=== PATIENT | male | born 1980 | race Caucasian/White ===

== ENCOUNTER 2016-11-23 09:17 | Emergency (ER) | payer OTHER ==
[~2016-11-23] VITALS: Ht 157.5 cm; Wt 76.1 kg
[~2016-11-23 09:17] MED LIST: ACET-1311 PO; BACL10TA PO; BISA10SU5 PR; DOCU1TAB6 PO; ENOX40IN SQ; ONDA4TAB46 PO; OXYC1TAB3 PO; SENN-65 PO; TRAM-10 PO; VANCOMYCIN IV
[2016-11-23 09:25] VITALS: TEMP 36.8; Ht 157.5 cm; Wt 76.1 kg
[2016-11-23] MEDS ORDERED: SODIUM CHLORIDE 0.9% 1000ML 1,000 ML IV STA ×2 (09:39→12:20)
[2016-11-23 10:33] LABS: BASO % 0.2 %; BASO ABS # 0.01 K/uL (0-0.2); COMPLETE YES; EOS % 0.6 %; HEMATOCRIT 46.1 % (42-52); IG% 0.2 %; LYMPH % 28.5 %; LYMPH ABS # 1.83 K/uL (1.2-3.4); MEAN CELL VOLUME 89.9 fL (80-100); MEAN CORPUSCULAR HEMOGLOBIN 30.4 pg (25-34); MEAN CORPUSCULAR HGB CONC 33.8 g/dl (32-36); MEAN PLATELET VOLUME 9.2 fL (7.4-10.4); MONO % 7.3 %; NEUT % 63.2 %; PLATELET COUNT 215 K/uL (130-400); RED BLOOD COUNT 5.13 M/uL (4.7-6.1); WHITE BLOOD COUNT 6.42 K/uL (4.8-10.8)
--- NOTE | 2016-11-23 10:33 | DIAGNOSTIC IMAGING REPORT ---
ABDOMEN AND PELVIS CT WITHOUT CONTRAST CT DOSE: 938.37 mGycm HISTORY: Pain LLQ pain eval for stone TECHNIQUE: Multiaxial CT images of the abdomen and pelvis were performed without the use of intravenous and oral contrast according to the standard department stone protocol. COMPARISON STUDY: None. FINDINGS: The lung bases are clear. The unenhanced liver, gallbladder, spleen, pancreas, and adrenal glands are unremarkable. No renal stones or hydronephrosis. No bowel wall thickening or obstruction. The pelvic organs are unremarkable. No suspicious lytic or blastic osseous lesions. Bowel pattern is nonobstructive. Prior cholecystectomy. Several para-aortic pelvic and inguinal nodes measuring up to 10 mm. These appear to be reactive. Bladder is midline. No evidence for bladder calcification. IMPRESSION: Negative study Electronically signed by: Gordy Kang M.D. 11/23/2016 10:32 AM Dictated Date/Time: 11/23/2016 10:20 AM
[2016-11-23 10:52] LABS: BUN/CREATININE RATIO 10.6 (10-20); CALCIUM 9.2 mg/dl (8.5-10.1); CREATININE 1.2 mg/dl (0.60-1.40); POTASSIUM 3.5 mmol/L (3.5-5.1)
[2016-11-23 11:52] LABS: MANUAL MICROSCOPIC REQUIRED? NO; URINE APPEARANCE CLEAR (CLEAR); URINE BILIRUBIN NEG (NEG); URINE COLOR YELLOW; URINE NITRITE NEG (NEG); URINE SPECIFIC GRAVITY 1.015 (1.000-1.030); UROBILINOGEN NEG (NEG)
[2016-11-23 11:54] LABS: REVIEW REQ? NO
[2016-11-23] MEDS ORDERED: AMOX875T PO (12:21)
[2016-11-23 13:07] VITALS: BP 119/80; PULSE 85; O2SAT 97
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
== END 2016-11-23 13:10 | disposition home or self-care (01) ==
LOC: C.EDB 09:19 → C.EDA 13:10
DX: R34 Anuria and oliguria (principal); R10.32 Left lower quadrant pain; S61.451A Open bite of right hand, initial encounter; Z79.899 Other long term (current) drug therapy; Z87.828 Personal history of other (healed) physical injury and trauma; Z87.891 Personal history of nicotine dependence; Z87.898 Personal history of other specified conditions; W50.3XXA Accidental bite by another person, initial encounter

== ENCOUNTER 2016-12-08 08:16 | Emergency (ER) | payer OTHER ==
[~2016-12-08] VITALS: Ht 157.5 cm; Wt 77.8 kg
[~2016-12-08 08:16] MED LIST changes: -ACET-1311 PO; -BACL10TA PO; -ENOX40IN SQ; -ONDA4TAB46 PO; -OXYC1TAB3 PO; -SENN-65 PO; -VANCOMYCIN IV
[2016-12-08 08:24] VITALS: TEMP 36.6; Ht 157.5 cm; Wt 77.8 kg
[2016-12-08] MEDS ORDERED: AMOX875T PO (09:10)
[2016-12-08] MEDS ORDERED: OXYC-57 PO (09:10)
[2016-12-08 09:20] LABS: URINE APPEARANCE CLEAR (CLEAR); URINE BILIRUBIN NEG (NEG); URINE COLOR YELLOW; URINE NITRITE NEG (NEG); URINE SPECIFIC GRAVITY 1.023 (1.000-1.030); UROBILINOGEN NEG (NEG)
[2016-12-08 09:22] LABS: MANUAL MICROSCOPIC REQUIRED? NO; REVIEW REQ? NO
[2016-12-08 09:29] LABS: BASO % 0.2 %; BASO ABS # 0.02 K/uL (0-0.2); COMPLETE YES; EOS % 1.6 %; HEMATOCRIT 45.4 % (42-52); IG% 0.1 %; LYMPH % 28.4 %; LYMPH ABS # 2.36 K/uL (1.2-3.4); MEAN CELL VOLUME 93.2 fL (80-100); MEAN CORPUSCULAR HEMOGLOBIN 31.6 pg (25-34); MEAN CORPUSCULAR HGB CONC 33.9 g/dl (32-36); MEAN PLATELET VOLUME 9.5 fL (7.4-10.4); MONO % 5.8 %; NEUT % 63.9 %; PLATELET COUNT 204 K/uL (130-400); RED BLOOD COUNT 4.87 M/uL (4.7-6.1)
[2016-12-08 09:49] LABS: ALT/SGPT 24 U/L (12-78); BLOOD UREA NITROGEN 13 mg/dl (7-18); BUN/CREATININE RATIO 11.9 (10-20); CARBON DIOXIDE 28 mmol/L (21-32); CHLORIDE 106 mmol/L (98-107); GLUCOSE 103 mg/dl (70-99); POTASSIUM 4.4 mmol/L (3.5-5.1); SODIUM 140 mmol/L (136-145)
[2016-12-08 09:52] LABS: ALKALINE PHOSPHATASE 63 U/L (45-117); AST/SGOT 16 U/L (15-37)
[2016-12-08 09:53] LABS: CALCIUM 9.1 mg/dl (8.5-10.1)
[2016-12-08] MEDS ORDERED: FLUCONAZOLE 50 MG TAB PO ONE (10:00)
--- NOTE | 2016-12-08 10:02 | EMERGENCY ROOM VISIT NOTE ---
History Report prepared by Juanito: Delbert Cheng Under the Supervision of: Dr. Avel De La Cruz D.O. First contact with patient: 09:03 Chief Complaint: UNABLE TO VOID Stated Complaint: CAN'T URINATE, RED LINE GOING DOWN PENIS Nursing Triage Summary: Patient states had a spinal cor injury in the past. Patient c/o not being able to void since Tuesday and having to self cath. Patient states has red streak from tip of penis to balls. Area is tender. History of Present Illness The patient is a 36 year old male who presents to the Emergency Room with complaints of rash. The patient has a history of spinal surgery in the past. Because of this he does catheterize himself. He's noticed that he's had to catheterize himself more often recently. He denies having any fevers or chills. He denies having any back pain. He denies having any new weakness in his lower extremities and his gait appears to be at its baseline according to the patient. He has noticed significant erythema over the scrotum as well as the base of the penis. The patient denies any penile discharge. He denies having any cloudy urine. He has not been on antibiotics recently. He states that he is not sexually active and has not had sexual intercourse for over 1 year. Source of History: patient Onset: Recently Position: other (global - rash) Timing: other (persistent) Associated Symptoms: + urinary symptoms, No back pain, No chills, No fevers , No weakness (in lower extremities) Note: Associated symptoms: Had to catheterize himself more often recently. Significant erythema over scrotum as well as base of penis. Denies penile discharge, cloudy urine. Review of Systems See HPI for pertinent positives & negatives. A total of 10 systems reviewed and were otherwise negative. Past Medical & Surgical Medical Problems: (1) Epidural abscess Family History No pertinent family history Social History Smoking Status: Current Every Day Smoker Alcohol Use: heavy Drug Use: none Housing Status: lives with family Occupation Status: employed Current/Historical Medications Scheduled Amoxicillin & Pot Clavulanate (Augmentin 875-125 mg), 1 TAB PO BID Bisacodyl (Bisacodyl), 10 MG HI 1800 Docusate Sodium (Docusate Sodium), 100 MG PO BID Fluconazole (Diflucan), 150 MG PO DAILY Nystatin (Topical) (Nystatin), 1 APPLN TOP QID Scheduled PRN Oxycodone/Acetaminophen 5MG/325MG (Percocet 5MG/325MG), 1-2 TABLETS PO Q4H PRN for Pain Tramadol (Ultram), 100 MG PO 0900 PRN for Pain Allergies Coded Allergies: No Known Allergies (Unverified , 12/08/16) Physical Exam Vital Signs Date Time Temp Pulse Resp B/P Pulse Ox O2 Delivery O2 Flow Rate FiO2 12/08/16 11:07 85 18 127/79 99 12/08/16 10:20 76 18 100/68 98 Room Air 12/08/16 08:24 36.6 95 16 123/74 99 Room Air Physical Exam GENERAL: Patient is awake alert in no acute distress patient is resting comfortably and showing no signs of anxiety EYES: The conjunctivae are clear. The pupils are round and reactive. EARS, NOSE, MOUTH AND THROAT: The nose is without any evidence of any deformity. Mucous membranes are moist tongue is midline NECK: The neck is nontender and supple. RESPIRATORY: Normal respiratory effort is noted there is no evidence of wheezing rhonchi or rales CARDIOVASCULAR: Regular rate and rhythm noted there no murmurs rubs or gallops normal S1 normal S2 GASTROINTESTINAL: The abdomen is soft. Bowel sounds are present in all quadrants. Abdomen is nontender : Circumcised male genitalia was appreciated. There is no discharge noted. There is no signs of vesicular rash. There is erythema noted on the ventral aspect of the penis which extends and. It has appearance of a candidal infection. MUSCULOSKELETAL/EXTREMITIES: There is no evidence of gross deformity full range of motion is noted in the hips and shoulders SKIN: No pedal edema was noted. NEUROLOGIC: Patient is awake alert and oriented x3. Medical Decision & Procedures Laboratory Results 12/08/16 09:15 Red Blood Count 4.87, Mean Corpuscular Volume 93.2, Mean Corpuscular Hemoglobin 31.6, Mean Corpuscular Hemoglobin Concent 33.9, Mean Platelet Volume 9.5, Neutrophils (%) (Auto) 63.9, Lymphocytes (%) (Auto) 28.4, Monocytes (%) (Auto) 5.8, Eosinophils (%) (Auto) 1.6, Basophils (%) (Auto) 0.2, Neutrophils # (Auto) 5.30, Lymphocytes # (Auto) 2.36, Monocytes # (Auto) 0.48, Eosinophils # (Auto) 0.13, Basophils # (Auto) 0.02 12/08/16 09:15 Test 12/08/16 09:00 12/08/16 09:15 Urine Color YELLOW Urine Appearance CLEAR (CLEAR) Urine pH 5.0 (4.5-7.5) Urine Specific [place] 1.023 (1.000-1.030) Urine Protein NEG (NEG) Urine Glucose (UA) NEG (NEG) Urine Ketones NEG (NEG) Urine Occult Blood NEG (NEG) Urine Nitrite NEG (NEG) Urine Bilirubin NEG (NEG) Urine Urobilinogen NEG (NEG) Urine Leukocyte Esterase NEG (NEG) White Blood Count 8.30 K/uL (4.8-10.8) Red Blood Count 4.87 M/uL (4.7-6.1) Hemoglobin 15.4 g/dL (14.0-18.0) Hematocrit 45.4 % (42-52) Mean Corpuscular Volume 93.2 fL (80-100) Mean Corpuscular Hemoglobin 31.6 pg (25-34) Mean Corpuscular Hemoglobin Concent 33.9 g/dl (32-36) Platelet Count 204 K/uL (130-400) Mean Platelet Volume 9.5 fL (7.4-10.4) Neutrophils (%) (Auto) 63.9 % Lymphocytes (%) (Auto) 28.4 % Monocytes (%) (Auto) 5.8 % Eosinophils (%) (Auto) 1.6 % Basophils (%) (Auto) 0.2 % Neutrophils # (Auto) 5.30 K/uL (1.4-6.5) Lymphocytes # (Auto) 2.36 K/uL (1.2-3.4) Monocytes # (Auto) 0.48 K/uL (0.11-0.59) Eosinophils # (Auto) 0.13 K/uL (0-0.5) Basophils # (Auto) 0.02 K/uL (0-0.2) RDW Standard Deviation 48.6 fL (36.4-46.3) RDW Coefficient of Variation 14.4 % (11.5-14.5) Immature Granulocyte % (Auto) 0.1 % Immature Granulocyte # (Auto) 0.01 K/uL (0.00-0.02) Anion Gap 6.0 mmol/L (3-11) Est Creatinine Clear Calc Drug Dose 84.7 ml/min Estimated GFR () 100.3 Estimated GFR (Non- 86.5 BUN/Creatinine Ratio 11.9 (10-20) Calcium Level 9.1 mg/dl (8.5-10.1) Total Bilirubin 0.3 mg/dl (0.2-1) Direct Bilirubin < 0.1 mg/dl (0-0.2) Aspartate Amino Transf (AST/SGOT) 16 U/L (15-37) Alanine Aminotransferase (ALT/SGPT) 24 U/L (12-78) Alkaline Phosphatase 63 U/L (45-117) Total Protein 7.9 gm/dl (6.4-8.2) Albumin 4.4 gm/dl (3.4-5.0) Lipase 309 U/L (73-393) Laboratory results per my review. Medications Administered Medications (Trade) Dose Ordered Sig/Mariella Route Start Time Stop Time Status Last Admin Dose Admin Fluconazole (Diflucan Tab) 150 mg NOW ONCE PO 12/08/16 10:00 12/08/16 10:01 DC 12/08/16 10:19 150 MG ED Course 0903: The patient was evaluated in room B11B. A complete history and physical examination were performed. 1000: Ordered Diflucan Tab 150 mg PO. 1050: Upon reevaluation, the patient is resting comfortably. I discussed the results and treatment plan with him. He verbalized agreement of the treatment plan. He was discharged home. Medical Decision Prior records/ancillary studies reviewed. Triage Nursing notes reviewed. The patient's history was concerning for a rash. Differential diagnosis: Etiologies such as contact dermatitis, viral exanthem, urticaria, allergic reaction, Osuna-Khris syndrome, toxic epidermal necrolysis, erythema multiforme, cellulitis, scabies, HSV, varicella, zoster, eczema, staph scalded skin syndrome, fungal infection, as well as others were entertained. The patient is a 36-year-old male who presented to the emergency department for an evaluation of redness on his scrotum. The patient did not have any signs of testicular torsion. He had no signs of scrotal abscess on physical exam but did have very significant skin changes overlying the scrotum which could be consistent with candidiasis. The patient had laboratory studies drawn in the emergency department. He was given a dose of Diflucan while in the emergency department. I discussed the patient's laboratory results with him. He was encouraged to continue all medications as prescribed. He was also encouraged to follow-up with his primary care physician as soon as possible for further evaluation. Otherwise she was encouraged to return to the emergency department immediately if symptoms change worsen or the need arises. Impression Primary Impression: Candidiasis of scrotum Scribe Attestation The scribe's documentation has been prepared under my direction and personally reviewed by me in its entirety. I confirm that the note above accurately reflects all work, treatment, procedures, and medical decision making performed by me. Departure Information Dispostion Home / Self-Care Prescriptions Nystatin (Topical) (NYSTATIN) 100,000 Unit/Gm Oin 1 APPLN TOP QID, #60 GM Prov: Avel De La Cruz, DO 12/08/16 Fluconazole (DIFLUCAN) 150 Mg Tab 150 MG PO DAILY, #1 TAB Prov: Avel De La Cruz, DO 12/08/16 Referrals No Doctor, Assigned (PCP) Forms HOME CARE DOCUMENTATION FORM, IMPORTANT VISIT INFORMATION, WORK / SCHOOL INSTRUCTIONS Patient Instructions ED Candidiasis Cutaneous, My [facility] Additional Instructions Continue all medications as prescribed. If symptoms do not improve in 4-5 days take the second dose of the Diflucan. Continue using the topical therapy as directed.
[2016-12-08] MEDS ORDERED: NYST80OI TOP (10:56)
[2016-12-08] MEDS ORDERED: FLUC150T PO (10:56)
[2016-12-08 11:07] VITALS: BP 127/79; PULSE 85; O2SAT 99
== END 2016-12-08 11:09 | disposition home or self-care (01) ==
LOC: C.EDB 08:22
DX: B37.49 Other urogenital candidiasis (principal); F17.210 Nicotine dependence, cigarettes, uncomplicated; Z79.899 Other long term (current) drug therapy

== ENCOUNTER 2021-10-29 14:28 | Inpatient (IN) ==
[2021-10-29 15:48] LABS: Basophils # (auto) 0.01 K/uL (0-0.2); Basophils % (auto) 0.1 %; Eosinophils # (auto) 0.11 K/uL (0-0.5); Eosinophils % (auto) 1.4 %; Hematocrit (blood only) 46.3 % (42-52); Hemoglobin 15.7 g/dL (14.0-18.0); Immature Granulocytes # (auto) 0.01 K/uL (0.00-0.02); Immature Granulocytes % (auto) 0.1 %; Lymphocytes # (auto) 2.08 K/uL (1.2-3.4); Lymphocytes % (auto) 26.2 %; Mean Corpuscular Hemoglobin 31.3 pg (25-34); Mean Corpuscular Hgb Conc 33.9 g/dL (32-36); Mean Corpuscular Volume 92.4 fL (80-100); Mean Platelet Volume 9.6 fL (7.4-10.4); Monocytes % (auto) 6.3 %; Neutrophils # (auto) 5.22 K/uL (1.4-6.5); Neutrophils % (auto) 65.9 %; Platelet Count 221 K/uL (130-400); RDW Coefficient of Variation 13.6 % (11.5-14.5); Red Blood Count 5.01 M/uL (4.7-6.1); White Blood Count 7.93 K/uL (4.8-10.8)
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
[2021-10-29 16:06] LABS: Acetaminophen < 3 ug/ml (10-30); Albumin Globulin Ratio 1.6 (0.9-2); Albumin Level 4.8 gm/dl (3.4-5.0); BUN Creatinine Ratio 17.3 (10-20); Bilirubin,Total 0.4 mg/dl (0.2-1.0); Calcium 9.5 mg/dl (8.5-10.1); Creatinine Clr Calc Pharmacy 83.3 ml/min; Est GFR (African American) 96.8 ml/min; Est GFR (Non-African American) 83.5 ml/min; Potassium 3.9 mmol/L (3.5-5.1); Salicylate < 3.0 mg/dl (3.0-30); Total Protein 7.8 gm/dl (6.0-8.3)
[2021-10-29 16:29] LABS: Appearance Urine Clear (Clear); Bilirubin Urine Negative (Negative); Blood Urine Negative (Negative); Color Urine Yellow; Glucose Urine UA Negative (Negative); Ketones Urine Negative (Negative); Leukocyte Esterase Urine Negative (Negative); Nitrite Urine Negative (Negative); Protein Urine Negative (Negative); Specific Gravity Urine 1.021 (1.000-1.030); Urobilinogen Urine Negative (Negative); pH Urine 5.5 (4.5-7.5)
[2021-10-29 17:10] LABS: Amphetamines+Metham, Urine Neg (Neg); Barbiturates, Urine Neg (Neg); Benzodiazepine, Urine Neg (Neg); Cocaine, Urine Neg (Neg); MDMA (Ecstacy), Urine Neg (Neg); Methadone, Urine Neg (Neg); Opiate, Urine Neg (Neg); Phencyclidine, Urine Neg (Neg)
[2021-10-29] MEDS ORDERED: hydrOXYzine HCl 25 MG TAB PO PRN (18:35)
[2021-10-29] MEDS ORDERED: MAGNESIUM HYDROXIDE SUSP 30 ML UDC PO PRN (18:35)
[2021-10-29] MEDS ORDERED: ALUMINUM/MAGNESIUM SUSP 30 ML UDC PO PRN (18:35)
[2021-10-29] MEDS ORDERED: SODIUM CHLORIDE 0.65% NA SOLN 45 ML (OCEAN) PRN (18:35)
[2021-10-29] MEDS ORDERED: ACETAMINOPHEN 325 MG TAB PO PRN (18:35)
[2021-10-29] MEDS ORDERED: BISMUTH SUBSALICYLATE LIQD 236 ML PO PRN (18:35)
[2021-10-29] MEDS: GABAPENTIN 100 MG CAP PO SCH (21:01)
[2021-10-30] MEDS: GABAPENTIN 100 MG CAP PO SCH (09:01)
[2021-10-30] MEDS: NICOTINE 21 MG/24 HR TDSY TD SCH (09:03)
[2021-10-30] MEDS: hydrOXYzine HCl 25 MG TAB PO PRN (10:09)
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
[2021-10-30] MEDS: SERTRALINE HCL 50 MG TABLET PO SCH (11:48)
[2021-10-30] MEDS: GABAPENTIN 300 MG CAP PO SCH ×2 (14:14→21:19)
[2021-10-31] MEDS: GABAPENTIN 300 MG CAP PO SCH ×3 (07:45→20:30)
[2021-10-31] MEDS: SERTRALINE HCL 50 MG TABLET PO SCH (07:47)
[2021-10-31] MEDS: NICOTINE 21 MG/24 HR TDSY TD SCH (08:06)
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
[2021-10-31] MEDS ORDERED: COUGH DROP (SUGAR FREE) LOZ 24 LOZ/1 BOX BUCCAL PRN (19:35)
[2021-10-31] MEDS: IBUPROFEN 600 MG TAB PO PRN (20:50)
[2021-10-31 23:50] LABS: Marijuana Quant, GCMS Urine 689 ng/mL (<5)
--- NOTE | 2021-11-01 08:46 | Psychiatric Progress Note ---
Date of Service November 01, 2021 Impression / Recommendations Impression The patient is a 41 year old with a history of depression and anxiety who was admitted for worsening depression and SI. Diagnostically consistent with MDD with anxious distress and medical marijuana use for chronic pain worsened by recent acute stressor of argument with his son in which he became physically aggressive while angry and now with significant guilt and feelings of worthlessness leading to SI. The patient is deemed unstable and requires psychiatric hospitalization for diagnostic clarification, safety and stabilization, medication management and development of further coping skills. Acute risk is moderate given recent stressor with pending legal charges depressive symptoms and SI but without plan or intent and feels safe in the hospital. Most significant modifiable risk factors are mood symptoms, improved coping skills and helping reduce pain. MNPR due to history of severe MRSA infection, initial swab on 10/29/21 was negative but cannot come off precautions until second swab 7 days later (11/05) is also negative. 11/01/21: Tolerating sertraline and gabapentin without any side effects. Continues to have tearfulness/depression/ruminative thoughts related to events prior to admission. Ongoing motivational interviewing regarding medical marijuana use. Reviewed some CBT strategies to cope with uncertainty of upcoming hearing and his fears about going to half-way. (1) Moderate major depressive disorder with anxiety single episode: (2) ABRAM (generalized anxiety disorder): (3) Suicidal ideation: (4) Chronic pain: 11/01/21: Continue current medications and tx plan. 10/31/21: Increase sertraline to 50mg qAM tomorrow. Continue with gabapentin 300mg TID. 10/30/21: The patient was admitted to the [facility] ([facility] mental health unit) on q15 min checks (behavioral with suicide precautions) for safety. The patient will participate in group, recreational, and milieu therapies and will be offered additional individual and family sessions as clinically appropriate. -Declines nicotine replacement therapy -Stop escitalopram -Start sertraline 25mg qd -Increase gabapentin to 300mg TID for off-label use for anxiety and to further target chronic pain Inventory Assets Strengths: wants to seek help, motivated to develop improved coping skills and anger manag ement strategies Needs: improved coping skills, additional outpatient supports, medication adjustment Risk Factors Assessment Male: Yes : Yes Do You Have Access To A Gun?: No Health Problems: Yes Mental Health Diagnoses: Yes Substance Use Disorders: No Previous Attempt: No Previous Psychiatric Hospitalization: No Hopelessness: Yes Protective Factors Assessment Responsible for Young Children: Yes Employed: No Stable Relationships: Yes Supportive Family: Yes Interval History Identifying Information MAYRA KENNY is a 41-year-old man who currently lives in [place] with his fiancee and son, has a history of depression and anxiety, and was admitted on 10/29/21 18:25 on a 201 voluntary commitment for worsening depression and SI. Chief Complaint "I'm feeling more calm". Review of Systems Sleep Information Total Hours of Sleep: 8 Meal Information Percent Meal Consumed - Breakfast: 100 Percent Meal Consumed - Lunch: 100 Percent Meal Consumed - Dinner: 100 Subjective Subjective Patient was seen & assessed and interval progress reviewed with treatment team nursing and social work. Remorseful about incident with his son and wanting to work on better managing his anger. Spoke with his daughter last night and became tearful. Rated his mood as very low last evening. Attending groups. Notes his mood is "ok" and that he misses his kids a lot. Also continues to worry about possibility of lengthy care home sentence if charged with assault. Feels the medications are helping as he is noticing that he feels more "calm". Gabapentin seems to be helping reduce his pain. Slept well last night. Physical Exam Psychiatric Orientation: alert and oriented x 3 Apperance: appropriately dressed and appropriately groomed Eye Contact: good eye contact Motor Behavior: no abnormal motor movements Speech: normal rate/rhythm/volume of speech Affect: + depressed affect, + anxious affect and + tearful affect Mood: + depressed mood and + anxious mood Thought Process: goal directed thought process Thought Content: reality based without delusions Suicidal Thoughts: denies suicidal plan and denies suicidal intent; + reports suicidal thoughts (intermittent thoughts, feels safe in the hospital) Homicidal Thoughts: denies homicidal thoughts Hallucinations: no auditory hallucinations and no visual hallucinations Cognition: recent memory grossly intact, remote memory grossly intact, attention grossly intact and language grossly intact Estimated Intelligence: consistent with education level Insight: + fair insight Judgement: + fair judgement Vital Signs (Past 24 Hours) Last Vital Signs Temp 36.5 C 11/01/21 06:55 Pulse 80 11/01/21 06:56 Resp 18 11/01/21 06:55 BP 111/83 11/01/21 06:56 Pulse Ox 96 10/29/21 22:19 [facility] Laboratory Results Laboratory Results - last 24 hr 10/29/21 15:10 U Marijuana THC Carboxy 689 H Drug Screen Comment SEE NOTE Current Inpatient Medications Current Inpatient Medications: Current Inpatient Medications Acetaminophen (Acetaminophen 325 Mg Tab) 650 mg PO Q4H PRN PRN Reason: Headache or Minor Fever Stop: 11/28/21 18:34 Last Admin: 10/31/21 07:44 Dose: 650 mg Documented by: Al Hydrox/Mg Hydrox/Simethicone (Aluminum/Magnesium Susp 30 Ml Udc) 30 ml PO Q4H PRN PRN Reason: GI Upset Stop: 11/28/21 18:34 Bismuth Subsalicylate (Bismuth Subsalicylate Liqd 236 Ml) 15 ml PO PRN PRN PRN Reason: Loose Stool Stop: 11/28/21 18:34 Gabapentin (Gabapentin 300 Mg Cap) 300 mg PO TID [facility] Stop: 11/29/21 13:59 Last Admin: 10/31/21 20:30 Dose: 300 mg Documented by: Hydroxyzine HCl (Hydroxyzine Hcl 25 Mg Tab) 50 mg PO HSZ PRN PRN Reason: Insomnia Stop: 11/28/21 18:34 Hydroxyzine HCl (Hydroxyzine Hcl 25 Mg Tab) 25 mg PO Q4H PRN PRN Reason: Anxiety Stop: 11/28/21 18:34 Last Admin: 10/30/21 10:09 Dose: 25 mg Documented by: Ibuprofen (Ibuprofen 600 Mg Tab) 600 mg PO Q6H PRN PRN Reason: Pain Stop: 11/30/21 09:01 Last Admin: 10/31/21 20:50 Dose: 600 mg Documented by: Magnesium Hydroxide (Magnesium Hydroxide Susp 30 Ml Udc) 30 ml PO DAILY PRN PRN Reason: Constipation Stop: 11/28/21 18:34 Menthol (Cough Drop (Sugar Free) Xena 24 Xena/1 Box) 1 xena BUCCAL PRN PRN PRN Reason: Sore Throat Stop: 11/30/21 19:34 Last Admin: 10/31/21 19:50 Dose: 1 xena Documented by: Miscellaneous (Remove Nicoderm Patch) 1 ea N/A DAILY@0849 [facility] Stop: 11/29/21 08:58 Last Admin: 10/31/21 08:06 Dose: Not Given Documented by: Nicotine (Nicotine 21 Mg/24 Hr Tdsy) 21 mg TD QAM G[facility]Y Stop: 11/29/21 08:59 Last Admin: 10/31/21 08:06 Dose: Not Given Documented by: Sertraline HCl (Sertraline Hcl 50 Mg Tablet) 50 mg PO QAM G[facility] Stop: 12/01/21 08:59 Sodium Chloride (Sodium Chloride 0.65% Na Soln 45 Ml ([place])) 1 - 2 sprays NA PRN PRN PRN Reason: Nasal Dryness/Congestion Stop: 11/28/21 18:34 Post Discharge Appointments Primary Care Physician Name Of Family Doctor: [facility]- Dr. Chan Primary Care Provider Appointment Comment: [facility] MINNIE Carson [phone]
[2021-11-01] MEDS: SERTRALINE HCL 50 MG TABLET PO SCH (08:52)
[2021-11-01] MEDS: GABAPENTIN 300 MG CAP PO SCH ×3 (08:53→20:36)
[2021-11-01] MEDS: NICOTINE 21 MG/24 HR TDSY TD SCH (08:54)
[2021-11-01] MEDS: IBUPROFEN 600 MG TAB PO PRN (18:41)
[2021-11-02] MEDS: NICOTINE 21 MG/24 HR TDSY TD SCH (07:46)
[2021-11-02] MEDS: SERTRALINE HCL 50 MG TABLET PO SCH (07:48)
[2021-11-02] MEDS: GABAPENTIN 300 MG CAP PO SCH ×3 (07:48→21:06)
--- NOTE | 2021-11-02 08:57 | Psychiatric Progress Note ---
Date of Service November 02, 2021 Impression / Recommendations Impression The patient is a 41 year old with a history of depression and anxiety who was admitted for worsening depression and SI. Diagnostically consistent with MDD with anxious distress and medical marijuana use for chronic pain worsened by recent acute stressor of argument with his son in which he became physically aggressive while angry and now with significant guilt and feelings of worthlessness leading to SI. The patient is deemed unstable and requires psychiatric hospitalization for diagnostic clarification, safety and stabilization, medication management and development of further coping skills. Acute risk is moderate given recent stressor with pending legal charges depressive symptoms and SI but without plan or intent and feels safe in the hospital. Most significant modifiable risk factors are mood symptoms, improved coping skills and helping reduce pain. MNPR due to history of severe MRSA infection, initial swab on 10/29/21 was negative but cannot come off precautions until second swab 7 days later (11/05) is also negative. 11/02/21: Tolerating sertraline and gabapentin without any side effects. Continues to have depression/ruminative thoughts related to events prior to admission. Ongoing motivational interviewing regarding medical marijuana use. Starting claritin qhs to help with allergy symptoms. Letter for court noting his hospital admission and current diagnoses provided to his mother, per his permission, to be given to his deputy director of public works for court date scheduled for Tuesday. (1) Moderate major depressive disorder with anxiety single episode: (2) ABRAM (generalized anxiety disorder): (3) Suicidal ideation: (4) Chronic pain: 11/02/21: Adding claritin qhs for allergies. Continue sertraline and gabapentin. Needs family meeting. 11/01/21: Continue current medications and tx plan. 10/31/21: Increase sertraline to 50mg qAM tomorrow. Continue with gabapentin 300mg TID. 10/30/21: The patient was admitted to the [facility] ([facility] mental health unit) on q15 min checks (behavioral with suicide precautions) for safety. The patient will participate in group, recreational, and milieu therapies and will be offered additional individual and family sessions as clinically appropriate. -Declines nicotine replacement therapy -Stop escitalopram -Start sertraline 25mg qd -Increase gabapentin to 300mg TID for off-label use for anxiety and to further target chronic pain Inventory Assets Strengths: wants to seek help, motivated to develop improved coping skills and anger management strategies Needs: improved coping skills, additional outpatient supports, medication adjustment Risk Factors Assessment Male: Yes : Yes Do You Have Access To A Gun?: No Health Problems: Yes Mental Health Diagnoses: Yes Substance Use Disorders: No Previous Attempt: No Previous Psychiatric Hospitalization: No Hopelessness: Yes Protective Factors Assessment Responsible for Young Children: Yes Employed: No Stable Relationships: Yes Supportive Family: Yes Interval History Identifying Information MAYRA KENNY is a 41-year-old man who currently lives in [place] with his fiancee and son, has a history of depression and anxiety, and was admitted on 10/29/21 18:25 on a 201 voluntary commitment for worsening depression and SI. Chief Complaint "That's really upsetting, I'm trying to stay calm". Review of Systems Sleep Information Total Hours of Sleep: 6.25 Sleep Comments: pt on q-15 minute checks Meal Information Percent Meal Consumed - Breakfast: 100 Percent Meal Consumed - Lunch: 100 Percent Meal Consumed - Dinner: 100 Subjective Subjective Patient was seen & assessed and interval progress reviewed with treatment team nursing and social work. Juan slept better last night and this is helping to improve his energy level. Less pain today and able to walk laps on the unit. NO side effects to sertraline or gabapentin. Likes that sertraline seems to be helping him feel calmer. Reviewed that his mother called and informed treatment team that she had to bring his son to the ED this morning as he had become increasingly behaviorally and emotionally dysregulated at home last night. processed this with Juan who noted how this news negatively impacted his mood but also noted that he is feeling less angry and had this occurred early in his stay he would have "tried to break out of the unit, no matter what to go see him and make sure he was ok". Reviewed that he was instead going to call his mother for an update and processed this with staff. Having some nasal congestion he attributes to allergies, cannot recall what OTC med it takes at home but would like to try claritin at night. Physical Exam Psychiatric Orientation: alert and oriented x 3 Apperance: appropriately dressed and appropriately groomed Eye Contact: good eye contact Motor Behavior: no abnormal motor movements Speech: normal rate/rhythm/volume of speech Affect: + depressed affect and + anxious affect Mood: + depressed mood and + anxious mood Thought Process: goal directed thought process Thought Content: reality based without delusions Suicidal Thoughts: denies suicidal thoughts, denies suicidal plan and denies suicidal intent Homicidal Thoughts: denies homicidal thoughts Hallucinations: no auditory hallucinations and no visual hallucinations Cognition: recent memory grossly intact, remote memory grossly intact, attention grossly intact and language grossly intact Estimated Intelligence: consistent with education level Insight: + fair insight Judgement: + fair judgement Vital Signs (Past 24 Hours) Last Vital Signs Temp 36.4 C L 11/02/21 06:53 Pulse 73 11/02/21 06:53 Resp 18 11/02/21 06:53 BP 119/84 11/02/21 06:53 Pulse Ox 96 10/29/21 22:19 Results & Data ([facility]) Current Inpatient Medications Current Inpatient Medications: Current Inpatient Medications Acetaminophen (Acetaminophen 325 Mg Tab) 650 mg PO Q4H PRN PRN Reason: Headache or Minor Fever Stop: 11/28/21 18:34 Last Admin: 10/31/21 07:44 Dose: 650 mg Documented by: Al Hydrox/Mg Hydrox/Simethicone (Aluminum/Magnesium Susp 30 Ml Udc) 30 ml PO Q4H PRN PRN Reason: GI Upset Stop: 11/28/21 18:34 Bismuth Subsalicylate (Bismuth Subsalicylate Liqd 236 Ml) 15 ml PO PRN PRN PRN Reason: Loose Stool Stop: 11/28/21 18:34 Gabapentin (Gabapentin 300 Mg Cap) 300 mg PO TID [facility] Stop: 11/29/21 13:59 Last Admin: 11/02/21 07:48 Dose: 300 mg Documented by: Hydroxyzine HCl (Hydroxyzine Hcl 25 Mg Tab) 50 mg PO HSZ PRN PRN Reason: Insomnia Stop: 11/28/21 18:34 Hydroxyzine HCl (Hydroxyzine Hcl 25 Mg Tab) 25 mg PO Q4H PRN PRN Reason: Anxiety Stop: 11/28/21 18:34 Last Admin: 10/30/21 10:09 Dose: 25 mg Documented by: Ibuprofen (Ibuprofen 600 Mg Tab) 600 mg PO Q6H PRN PRN Reason: Pain Stop: 11/30/21 09:01 Last Admin: 11/01/21 18:41 Dose: 600 mg Documented by: Magnesium Hydroxide (Magnesium Hydroxide Susp 30 Ml Udc) 30 ml PO DAILY PRN PRN Reason: Constipation Stop: 11/28/21 18:34 Menthol (Cough Drop (Sugar Free) Xena 24 Xena/1 Box) 1 xena BUCCAL PRN PRN PRN Reason: Sore Throat Stop: 11/30/21 19:34 Last Admin: 10/31/21 19:50 Dose: 1 xena Documented by: Miscellaneous (Remove Nicoderm Patch) 1 ea N/A DAILY@0859 [facility] Stop: 11/29/21 08:58 Last Admin: 11/02/21 07:45 Dose: Not Given Documented by: Nicotine (Nicotine 21 Mg/24 Hr Tdsy) 21 mg TD QAM [facility] Stop: 11/29/21 08:59 Last Admin: 11/02/21 07:46 Dose: Not Given Documented by: Sertraline HCl (Sertraline Hcl 50 Mg Tablet) 50 mg PO QAM [facility] Stop: 12/01/21 08:59 Last Admin: 11/02/21 07:48 Dose: 50 mg Documented by: Sodium Chloride (Sodium Chloride 0.65% Na Soln 45 Ml ([place])) 1 - 2 sprays NA PRN PRN PRN Reason: Nasal Dryness/Congestion Stop: 11/28/21 18:34 Post Discharge Appointments Primary Care Physician [facility] Primary Care Provider Appointment Comment: [facility] [employer] MINNIE Carson [phone]
[2021-11-02] MEDS: hydrOXYzine HCl 25 MG TAB PO PRN (15:37)
[2021-11-02] MEDS ORDERED: LORATADINE 10 MG TAB PO SCH (22:00)
[2021-11-02] MEDS: IBUPROFEN 600 MG TAB PO PRN (22:08)
[2021-11-03] MEDS: GABAPENTIN 300 MG CAP PO SCH ×2 (08:00→13:19)
[2021-11-03] MEDS: SERTRALINE HCL 50 MG TABLET PO SCH (08:00)
[2021-11-03] MEDS: NICOTINE 21 MG/24 HR TDSY TD SCH (08:01)
--- NOTE | 2021-11-03 08:45 | Psychiatric Progress Note ---
Date of Service November 03, 2021 Impression / Recommendations Impression The patient is a 41 year old with a history of depression and anxiety who was admitted for worsening depression and SI. Diagnostically consistent with MDD with anxious distress and medical marijuana use for chronic pain worsened by recent acute stressor of argument with his son in which he became physically aggressive while angry and now with significant guilt and feelings of worthlessness leading to SI. The patient is deemed unstable and requires psychiatric hospitalization for diagnostic clarification, safety and stabilization, medication management and development of further coping skills. Acute risk is moderate given recent stressor with pending legal charges depressive symptoms and SI but without plan or intent and feels safe in the hospital. Most significant modifiable risk factors are mood symptoms, improved coping skills and helping reduce pain. MNPR due to history of severe MRSA infection, initial swab on 10/29/21 was negative but cannot come off precautions until second swab 7 days later (11/05) is also negative. 11/02/21: Tolerating sertraline and gabapentin without any side effects. Continues to have depression/ruminative thoughts related to events prior to admission. Ongoing motivational interviewing regarding medical marijuana use. Starting claritin qhs to help with allergy symptoms. Letter for court noting his hospital admission and current diagnoses provided to his mother, per his permission, to be given to his public service representative for court date scheduled for Tuesday. (1) Moderate major depressive disorder with anxiety single episode: (2) ABRAM (generalized anxiety disorder): (3) Suicidal ideation: (4) Chronic pain: 11/02/21: Adding claritin qhs for allergies. Continue sertraline and gabapentin. Needs family meeting. 11/01/21: Continue current medications and tx plan. 10/31/21: Increase sertraline to 50mg qAM tomorrow. Continue with gabapentin 300mg TID. 10/30/21: The patient was admitted to the [facility] ([facility] mental health unit) on q15 min checks (behavioral with suicide precautions) for safety. The patient will participate in group, recreational, and milieu therapies and will be offered additional individual and family sessions as clinically appropriate. -Declines nicotine replacement therapy -Stop escitalopram -Start sertraline 25mg qd -Increase gabapentin to 300mg TID for off-label use for anxiety and to further target chronic pain Inventory Assets Strengths: wants to seek help, motivated to develop improved coping skills and anger management strategies Needs: improved coping skills, additional outpatient supports, medication adjustment Risk Factors Assessment Male: Yes : Yes Do You Have Access To A Gun?: No Health Problems: Yes Mental Health Diagnoses: Yes Substance Use Disorders: No Previous Attempt: No Previous Psychiatric Hospitalization: No Hopelessness: Yes Protective Factors Assessment Responsible for Young Children: Yes Employed: No Stable Relationships: Yes Supportive Family: Yes Interval History Identifying Information MAYRA KENNY is a 41-year-old man who currently lives in [place] with his fiancee and son, has a history of depression and anxiety, and was admitted on 10/29/21 18:25 on a 201 voluntary commitment for worsening depression and SI. Chief Complaint "[]". Review of Systems Sleep Information Total Hours of Sleep: 6 Sleep Comments: pt on q-15 minute checks Meal Information Percent Meal Consumed - Breakfast: 100 Percent Meal Consumed - Lunch: 100 Percent Meal Consumed - Dinner: 90 Subjective Subjective Patient was seen & assessed and interval progress reviewed with treatment team nursing and social work. Physical Exam Psychiatric Orientation: alert and oriented x 3 Apperance: appropriately dressed and appropriately groomed Eye Contact: good eye contact Motor Behavior: no abnormal motor movements Speech: normal rate/rhythm/volume of speech Affect: + depressed affect, + anxious affect and + tearful affect Mood: + depressed mood and + anxious mood Thought Process: goal directed thought process Thought Content: reality based without delusions Suicidal Thoughts: denies suicidal thoughts, denies suicidal plan and denies suicidal intent Homicidal Thoughts: denies homicidal thoughts Hallucinations: no auditory hallucinations and no visual hallucinations Cognition: recent memory grossly intact, remote memory grossly intact, attention grossly intact and language grossly intact Estimated Intelligence: consistent with education level Insight: + fair insight Judgement: + fair judgement Vital Signs (Past 24 Hours) Last Vital Signs Temp 36.3 C L 11/03/21 06:48 Pulse 94 H 11/03/21 06:49 Resp 16 11/03/21 06:48 BP 120/85 11/03/21 06:49 Pulse Ox 96 10/29/21 22:19 Results & Data ([facility]) Current Inpatient Medications Current Inpatient Medications: Current Inpatient Medications Acetaminophen (Acetaminophen 325 Mg Tab) 650 mg PO Q4H PRN PRN Reason: Headache or Minor Fever Stop: 11/28/21 18:34 Last Admin: 10/31/21 07:44 Dose: 650 mg Documented by: Al Hydrox/Mg Hydrox/Simethicone (Aluminum/Magnesium Susp 30 Ml Udc) 30 ml PO Q4H PRN PRN Reason: GI Upset Stop: 11/28/21 18:34 Bismuth Subsalicylate (Bismuth Subsalicylate Liqd 236 Ml) 15 ml PO PRN PRN PRN Reason: Loose Stool Stop: 11/28/21 18:34 Gabapentin (Gabapentin 300 Mg Cap) 300 mg PO TID [facility] Stop: 11/29/21 13:59 Last Admin: 11/03/21 08:00 Dose: 300 mg Documented by: Hydroxyzine HCl (Hydroxyzine Hcl 25 Mg Tab) 50 mg PO HSZ PRN PRN Reason: Insomnia Stop: 11/28/21 18:34 Hydroxyzine HCl (Hydroxyzine Hcl 25 Mg Tab) 25 mg PO Q4H PRN PRN Reason: Anxiety Stop: 11/28/21 18:34 Last Admin: 11/02/21 15:37 Dose: 25 mg Documented by: Ibuprofen (Ibuprofen 600 Mg Tab) 600 mg PO Q6H PRN PRN Reason: Pain Stop: 11/30/21 09:01 Last Admin: 11/02/21 22:08 Dose: 600 mg Documented by: Loratadine (Loratadine 10 Mg Tab) 10 mg PO HS [facility] Stop: 12/02/21 21:59 Last Admin: 11/02/21 21:06 Dose: 10 mg Documented by: Magnesium Hydroxide (Magnesium Hydroxide Susp 30 Ml Udc) 30 ml PO DAILY PRN PRN Reason: Constipation Stop: 11/28/21 18:34 Menthol (Cough Drop (Sugar Free) Xena 24 Xena/1 Box) 1 xena BUCCAL PRN PRN PRN Reason: Sore Throat Stop: 11/30/21 19:34 Last Admin: 10/31/21 19:50 Dose: 1 xena Documented by: Miscellaneous (Remove Nicoderm Patch) 1 ea N/A DAILY@0859 [facility] Stop: 11/29/21 08:58 Last Admin: 11/03/21 08:00 Dose: Not Given Documented by: Nicotine (Nicotine 21 Mg/24 Hr Tdsy) 21 mg TD QAM [facility] Stop: 11/29/21 08:59 Last Admin: 11/03/21 08:01 Dose: Not Given Documented by: Sertraline HCl (Sertraline Hcl 50 Mg Tablet) 50 mg PO QAM [facility] Stop: 12/01/21 08:59 Last Admin: 11/03/21 08:00 Dose: 50 mg Documented by: Sodium Chloride (Sodium Chloride 0.65% Na Soln 45 Ml ([place])) 1 - 2 sprays NA PRN PRN PRN Reason: Nasal Dryness/Congestion Stop: 11/28/21 18:34 Post Discharge Appointments [facility] Date of Appointment with PCP: 11/09/21 Time of Appointment with PCP: 11:30am Provider Appointment Comment: [employer] MINNIE Carson [phone]
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
== END 2021-11-03 13:20 | disposition home or self-care (01) | DRG 885 ==
LOC: ED 14:28 → 3S 18:21